=== PATIENT | male | born 1950 | race Hispanic/Latino ===

== ENCOUNTER 2016-10-06 15:27 | Inpatient (IN) | payer MEDICARE ==
--- NOTE | 2016-10-06 15:55 | ED PDOC ---
Arrival/HPI - General Time Seen by Provider: 10/06/16 15:28 Historian: Patient, EMS - History of Present Illness Narrative History of Present Illness (Text): 10/06/16 15:54 66 year old male whose past medical history includes Hep C, hypertension, alcohol abuse, and diabetes presents from home for reported altered mental status. As per EMS, they were called for altered mental status. Patient noted by EMS to be mildly hypoglyemic and given oral dextrose. Patient is a poor historian. He states he reportedly "passed out "but cannot provide further history. pt oriented x 3 but confused responses at times Denies pain. No fever or other complaints. no cp, abdominal pain, n/v/d, urinary changes, gabriel Time/Duration: 24 hours Symptom Onset: Gradual Symptom Course: Unchanged Associated Symptoms (Text): None Past Medical History - Provider Review Nursing Documentation Reviewed: Yes - Infectious Disease Hx of Infectious Diseases: None - Tetanus Immunization Tetanus Immunization: Unknown - Past Medical History Past Medical History: No Previous - Cardiac Hx Hypertension: Yes - Pulmonary Hx Respiratory Disorders: No - Neurological Hx Neurological Disorder: No - HEENT Hx HEENT Disorder: No - Renal Hx Renal Disorder: No - Endocrine/Metabolic Hx Diabetes Mellitus Type 2: Yes - Hematological/Oncological Hx Blood Disorders: No - Integumentary Hx Dermatological Disorder: No - Musculoskeletal/Rheumatological Hx Musculoskeletal Disorders: No - Gastrointestinal Hx Gastrointestinal Disorders: No - Genitourinary/Gynecological Hx Genitourinary Disorders: No - Psychiatric Hx Psychophysiologic Disorder: No Hx Substance Use: No - Past Surgical History Past Surgical History: Unable to Obtain - Surgical History Other/Comment: unobtainable - Anesthesia Hx Anesthesia Reactions: No Hx Malignant Hyperthermia: No - Suicidal Assessment Feels Threatened In Home Enviroment: No Family/Social History - Physician Review Nursing Documentation Reviewed: Yes Family/Social History: Unknown Family HX Smoking Status: Never Smoked Hx Alcohol Use: Yes Hx Substance Use: No Hx Substance Use Treatment: No Allergies/Home Meds Allergies/Adverse Reactions: Allergies No Known Allergies Allergy (Verified 10/06/16 15:59) Home Medications: Home Meds Medication Instructions Recorded Confirmed DULoxetine [Cymbalta] 60 mg PO DAILY 12/07/11 10/06/16 Allopurinol [Zyloprim] 300 mg PO DAILY 02/07/16 10/06/16 Furosemide [Lasix] 40 mg PO DAILY 02/07/16 10/06/16 Lisinopril/Hydrochlorothiazide 1 tab PO DAILY 02/07/16 10/06/16 [Lisinopril-Hctz 20-25 mg Tab] Potassium Chloride [Klor-Con 10] 1 tab PO DAILY 02/07/16 10/06/16 glyBURIDE [Micronase] 5 mg PO DAILY 02/07/16 10/06/16 Review of Systems - Review of Systems Systems not reviewed;Unavailable: Other (Poor historian) Constitutional: absent: Fevers Cardiovascular: absent: Chest Pain Gastrointestinal: absent: Abdominal Pain Physical Exam Vital Signs Reviewed: Yes Vital Signs Temp Pulse Resp BP Pulse Ox 10/06/16 18:00 91 H 34 H 133/58 L 95 10/06/16 17:57 94 H 37 H 118/53 L 93 L 10/06/16 17:55 68 79 H 10/06/16 17:29 100 H 20 125/61 90 L 10/06/16 15:45 98.9 F 110 H 24 120/65 98 10/06/16 15:41 98.9 F 110 H 20 120/65 90 L Temperature: Afebrile Blood Pressure: Normal Pulse: Tachycardic Respiratory Rate: Normal Appearance: Positive for: Other (jaundice appearing, awake alert male, speaking full sentences, no increased wob, at times confused responses, obese) Pain Distress: None Mental Status: Positive for: Alert and Oriented X 3, Confused (at time confused responses) - Systems Exam Head: Present: Atraumatic, Normocephalic Pupils: Present: PERRL Extroacular Muscles: Present: EOMI Conjunctiva: Present: Icteric, Other (scleral icterus) Mouth: Present: Moist Mucous Membranes Neck: Present: Normal Range of Motion. No: Meningeal Signs Respiratory/Chest: Present: Clear to Auscultation, Good Air Exchange. No: Respiratory Distress, Accessory Muscle Use Cardiovascular: Present: Regular Rate and Rhythm, Normal S1, S2. No: Murmurs Abdomen: Present: Normal Bowel Sounds, Other (Morbidly obese). No: Tenderness, Distention, Peritoneal Signs Genitourinary Male: Present: Normal External Genitalia Back: Present: Normal Inspection Upper Extremity: Present: NORMAL PULSES, Erythema (mild erythema, warmth to right upper arm). No: Cyanosis Lower Extremity: Present: Edema (bilateral), NORMAL PULSES, Other (Chronic appearing wounds to b/l lower extremities) Neurological: Present: GCS=15, CN II-XII Intact, Speech Normal, Motor Func Grossly Intact, Normal Sensory Function, Other (awake alert, oriented x 3, but at times confused responses) Skin: Present: Warm, Dry, Rashes ((+)chronic appearing wounds to bl lower extremities, (+)erythema/warmth to rue), Other (Jaundice) Psychiatric: Present: Alert, Oriented x 3 Medical Decision Making ED Course and Treatment: Impression: 66 year old male whose past medical history includes Hep C, hypertension, alcohol abuse, and diabetes presents from home for reported altered mental status. Differential Diagnosis include but are not limited to: sepsis, cardiac, metabolic, intracranial, tox. pt poor historian, no family bedside. Plan: -- CT Head, EKG, Chest X-ray -- Labs -- Reassess and disposition Prior Visits: Notes and results from previous visits were reviewed. Patient last seen in ED on 02/05/16 for fall and admitted for Subdural hematoma Progress Notes: 10/06/16 16:19 Code Sepsis called. antibiotics, fluids ordered. b/p 120 systolic, HR 110, afib (old). does not require 30cc/kg bolus, pt mildly hypoglyecemic on arrival, dextrose given. 10/06/16 16:54 noted new renal failure. as per ems, history of decreased urine outpt at home. suspect ATN/rhabdo, adame order placed. noted new hyperbilirubinemia - ct abd/pelvis added. pt empirically covered for cholangitis, abd soft, no ttp. ammonia wnl noted trop. asa/heparin held as ct head pending. no ekg changes. suspect type II nstemi. pt denies CP at this time. noted CPK, iv fluids already running Case discussed with Dr. Carrington, cash shortage investigator, accepts to ICU. CT/cxr imaging studies pending, will be followed by ICU team Paged Dr. Ledezma, awaiting callback 10/06/16 17:04 Dr kimball accepts. pt observed in ER awake, alert, in no respiratory distress , neuro intact, except for mild confusion. Later during CT, RN reported pt had syncopal episode when laid flat for exam, ED RN communicated directly with ICU attending, and determination to delay imaging made as per ICU team and ED RN. pt transported directly to ICU from CT scan. Case discussed with Dr. Ledezma, requesting Dr. Ross, Dr Munoz, Dr Joseph , Dr Koenig to be on consult. - Critical Care Critical Care Minutes: 45 minutes - Lab Interpretations Microbiology Results: Microbiology Results 10/06/16 16:50 Blood Blood Culture - Preliminary Gram Pos Cocci In Clusters 10/06/16 16:50 Blood Gram Stain - Final 10/06/16 15:50 Blood S.aureus & Coag-Neg Staph PNA FISH - Final 10/06/16 15:50 Blood Blood Culture - Preliminary Gram Pos Cocci In Clusters 10/06/16 15:50 Blood Gram Stain - Final Lab Results: 10/06/16 15:50 10/06/16 15:50 Lab Results 10/06/16 16:02: POC Glucose (mg/dL) 62 L 10/06/16 15:50: Alcohol, Quantitative < 10 10/06/16 15:50: Ammonia 25 10/06/16 15:50: pO2 54, VBG pH 7.17 L*, VBG pCO2 46.0, VBG HCO3 16.8 L, VBG Total CO2 18.2 L, VBG O2 Sat (Calc) 84.3 H, VBG Base Excess -11.5 L, VBG Potassium 5.7 H, Sodium 131.0 L, Chloride 98.0, Glucose 65 L, Lactate 7.2 H*, FiO2 21.0, Venous Blood Potassium 5.7 H 10/06/16 15:50: Sodium 133, Chloride 93 L, Potassium 5.4 H, Carbon Dioxide 17 L , Anion Gap 28 H, BUN 91 H, Creatinine 5.0 H, Est GFR ( Amer) 14, Est GFR (Non-Af Amer) 12, Random Glucose 70, Calcium 8.6, Magnesium 2.2, Total Bilirubin 18.4 H*, AST 198 H, ALT 74 H, Alkaline Phosphatase 98, Lactate Dehydrogenase 1591 H, Total Creatine Kinase 2484 H, CK-MB (CK-2) 76.5 H, CK-MB ( CK-2) % 3.1 H, Troponin I 1.80 H* D, Total Protein 7.5, Albumin 3.0, Globulin 4.5, Albumin/Globulin Ratio 0.7 L 10/06/16 15:50: PT 14.3 H, INR 1.32 H, APTT 33.8 H 10/06/16 15:50: WBC 30.8 H* D, RBC 3.97, Hgb 12.8 L, Hct 37.7 L, MCV 95.0, MCH 32.2, MCHC 34.0, RDW 16.5 H, Plt Count 50 L, MPV 10.2, Neutrophils % (Manual) 89 H, Band Neutrophils % 9 H, Lymphocytes % (Manual) 1 L, Monocytes % (Manual) 1 , Nucleated RBC % 3, Platelet Evaluation Low - RAD Interpretation Radiology Orders: 10/06/16 15:51 HEAD W/O CONTRAST [CT] Stat CHEST PORTABLE [RAD] Stat 10/06/16 16:50 ABD & PELVIS W/O PO OR IV CONT [CT] Stat - EKG Interpretation EKG Interpretation (Text): EKG shows atrial fibrillation at 111 BPM, otherwise normal. Interpreted by me. Interpreted by ED Physician: Yes Type: 12 lead EKG - Medication Orders Current Medication Orders: Discontinued Medications Dextrose (Dextrose 50% Inj) 50 ml IVP STAT STA Stop: 10/06/16 16:06 Last Admin: 10/06/16 16:08 Dose: 50 ml Heparin Sodium (Porcine) (Heparin) 5,000 units SC Q8 ANGIE PRN Reason: Protocol Last Admin: 10/06/16 21:53 Dose: 5,000 units Vancomycin HCl (Vancomycin 1gm) 1 gm in 250 mls @ 167 mls/hr IVPB STAT STA PRN Reason: Protocol Stop: 10/06/16 17:43 Piperacillin Sod/Tazobactam Sod (Zosyn 3.375 In Ns 100ml) 100 mls @ 200 mls/hr IVPB STAT STA PRN Reason: Protocol Stop: 10/06/16 16:43 Last Admin: 10/06/16 16:27 Dose: 200 mls/hr Sodium Chloride (Sodium Chloride 0.9%) 1,000 mls @ 999 mls/hr IV .Q1H1M STA Stop: 10/06/16 17:15 Last Admin: 10/06/16 16:27 Dose: 999 mls/hr Dextrose/Sodium Chloride (Dextrose 5%/0.45% Ns 1000 Ml) 1,000 mls @ 60 mls/hr IV .[id number] ANGIE Piperacillin Sod/Tazobactam Sod (Zosyn 3.375 In Ns 100ml) 100 mls @ 200 mls/hr IVPB Q6 ANGIE PRN Reason: Protocol Stop: 10/07/16 06:29 Last Admin: 10/07/16 00:00 Dose: 200 mls/hr Dextrose/Sodium Chloride (Dextrose 5%/0.45% Ns 1000 Ml) 1,000 mls @ 125 mls/hr IV .Q8H ANGIE Last Admin: 10/06/16 20:09 Dose: 125 mls/hr Sodium Chloride (Sodium Chloride 0.9%) 1,000 mls @ 999 mls/hr IV .Q1H1M STA Stop: 10/06/16 20:59 Last Admin: 10/06/16 20:11 Dose: 999 mls/hr Heparin Sodium/Sodium Chloride (Heparin 28562 Units/250ml 1/2 Normal Saline) 25 ,000 units in 250 mls @ 13.2 mls/hr IV .[id number] ANGIE; 12 UNITS/KG/HR PRN Reason: Protocol Last Admin: 10/07/16 01:17 Dose: 12 units/kg/hr, 13.2 mls/hr Insulin Human Lispro (Humalog Med) 0 units SC ACHS ANGIE PRN Reason: Protocol Last Admin: 10/06/16 21:53 Dose: Not Given Non-Admin Reason: Blood Sugar Parameter Pantoprazole Sodium (Protonix Inj) 40 mg IVP DAILY ANGIE Pneumococcal Polyvalent Vaccine (Pneumovax 23 Vaccine) 0.5 ml IM .ONCE ONE Stop: 10/06/16 19:01 - Scribe Statement The provider has reviewed the documentation as recorded by the Yaya Mathis Provider Scribe Attestation: All medical record entries made by the Malkaibpao were at my direction and personally dictated by me. I have reviewed the chart and agree that the record accurately reflects my personal performance of the history, physical exam, medical decision making, and the department course for this patient. I have also personally directed, reviewed, and agree with the discharge instructions and disposition. Disposition/Present on Arrival - Present on Arrival Any Indicators Present on Arrival: No History of DVT/PE: No History of Uncontrolled Diabetes: Yes Urinary Catheter: No History Surgical Site Infection Following: None - Disposition Have Diagnosis and Disposition been Completed?: Yes Diagnosis: Sepsis, Hypoglycemia, Altered mental status, NSTEMI (non-ST elevated myocardial infarction), Thrombocytopenia, Renal failure, Hyperbilirubinemia, Lactic acidosis, Rhabdomyolysis Disposition: HOSPITALIZED Disposition Time: 05:00 Patient Plan: ICU Condition: CRITICAL
[2016-10-06] MEDS ORDERED: Dextrose 50% SYRINGE Inj (50 ml) IVP STA (16:05)
[2016-10-06 16:08] LABS: HEMATOCRIT 37.7 % (42.0-52.0); MEAN CORPUSCULAR HEMOGLOBIN 32.2 pg (25.0-35.0); MEAN PLATELET VOLUME 10.2 fl (7.0-11.0); PLATELET COUNT 50 10^3/uL (120.0-450.0); RED CELL DISTRIBUTION WIDTH 16.5 % (11.5-14.5)
[2016-10-06 16:13] LABS: WHITE BLOOD COUNT 30.8 10^3/ul (4.5-11.0)
[2016-10-06] MEDS ORDERED: Piperacillin/Tazobact 3.375 gm 100 ML IVPB STA (16:14)
[2016-10-06] MEDS ORDERED: Vancomycin 1gm in NS 250ml 1 GM/250 ML BAG IVPB STA (16:14)
[2016-10-06 16:15] LABS: ADD MANUAL DIFF? YES; VENOUS BLOOD GAS BASE EXCESS -11.5 mmol/L (0.0-2.0); VENOUS BLOOD PH 7.17 (7.32-7.43)
[2016-10-06] MEDS ORDERED: Sodium Chloride 0.9% 1,000 ML IV STA ×2 (16:15→19:59)
[2016-10-06 16:18] LABS: INR 1.32 (0.93-1.08); PARTIAL THROMBOPLASTIN TIME 33.8 Seconds (23.7-30.8)
[2016-10-06 16:22] LABS: ALB/GLOB RATIO 0.7 (1.1-1.8); CALCIUM 8.6 mg/dL (8.4-10.5); MAGNESIUM 2.2 mg/dL (1.7-2.2); POTASSIUM 5.4 mmol/L (3.6-5.0); TOTAL PROTEIN 7.5 g/dL (5.8-8.3)
[2016-10-06 16:32] LABS: BAND 9 % (0-2); NEUTROPHIL 89 % (50.0-70.0); NUCLEATED RED BLOOD CELL 3 %; PLATELET ESTIMATE LOW (NORMAL)
--- NOTE | 2016-10-06 16:32 | PCM.SEPTIC ---
Sepsis Progress Note - Reassessment Type Date of Evaluation: 10/06/16 Time of Evaluation: 16:29 Reassessment Type: Non-invasive reassessment - Non Invasive Reassessment Were the most recent vital sign reviewed: Yes Vital Sign (Latest): Temp Pulse Resp BP Pulse Ox 98.9 F 110 H 24 120/65 98 10/06/16 15:45 10/06/16 15:45 10/06/16 15:45 10/06/16 15:45 10/06/16 15:45 Cardiovascular: Yes: Tachycardia Capillary Refill: Normal (Less than 2 sec) Pulses: Normal Radial, Normal Dorsalis Pedis, Normal Posterior Tibialis Skin: Jaundice
[2016-10-06 16:47] LABS: TROPONIN I 1.8 ng/mL
[2016-10-06 16:48] LABS: BILIRUBIN,TOTAL 18.4 mg/dL (0.2-1.3)
[2016-10-06 18:59] VITALS: BMI 34.7
[2016-10-06 18:59] LABS: ARTERIAL BLOOD GAS HCO3 16.4 mmol/L (21-28); ARTERIAL BLOOD GAS PH 7.22 (7.35-7.45)
[2016-10-06] MEDS ORDERED: Pneumococcal 23-Valent Vaccine IM ONE (19:00)
[2016-10-06 19:09] LABS: PH,URINE 5.5 (4.7-8.0); URINE APPEARANCE SL CLOUDY (CLEAR); URINE BILIRUBIN MODERATE (NEGATIVE); URINE BLOOD SMALL (NEGATIVE); URINE COLOR DARK YELLOW (YELLOW); URINE GLUCOSE (UA) 100 mg/dL (NEGATIVE); URINE KETONE NEGATIVE (NEGATIVE); URINE LEUKOCYTE ESTERASE TRACE Leu/uL (NEGATIVE); URINE PROTEIN >=300 mg/dL (<30 mg/dL)
[2016-10-06 19:15] LABS: URINE BACTERIA FEW (NEG)
[2016-10-06] MEDS ORDERED: Sodium Chloride 0.9% 1,000 ML IV SCH (19:15)
[2016-10-06] MEDS ORDERED: Dextrose 5%/0.45% NS 1,000 ML IV SCH ×2 (19:15→19:58)
[2016-10-06 20:05] LABS: VENOUS BLOOD GAS BASE EXCESS -9.8 mmol/L (0.0-2.0); VENOUS BLOOD PH 7.18 (7.32-7.43)
--- NOTE | 2016-10-06 20:17 | CON ---
DATE: 10/06/2016 REQUESTING PHYSICIAN: Dr. Ledezma. CHIEF COMPLAINT: The patient presented with a history of a syncopal episode and altered mental statu s. HISTORY OF PRESENT ILLNESS: The patient is a 66-year-old obese gentleman who was found at home unres ponsive and developed after that altered mental status and was brought to the Emergency Room and note d to be hypoglycemic. The patient has a history of hepatitis C, diabetes, atrial fibrillation, ETOH abuse, hypertension and was found to have altered mental status at home and for which he stated he pa ssed out. The labs revealed increased white count of 30. He has increased lactic acid, metabolic ac idosis, with noted acute renal failure, hepatitis with increased bilirubin and rhabdomyolysis. The p atient has increased troponins, so a possible myocardial infarction or acute coronary syndrome and we must rule out sepsis with the increased white count. At this time, he is admitted to the intensive care unit. He does respond to the spoken word. Hemodynamically, he is stable. No cough, no congest ion. No fever or chills. No nausea or vomiting. No chest pain or abdominal pain and no diarrhea. PAST MEDICAL HISTORY: As above. ALLERGIES: He has no known allergies. CURRENT MEDICATIONS: Can be evaluated as per the nurses' intake form. SOCIAL HISTORY: The patient uses alcohol, no substance abuse and no history of smoking. REVIEW OF SYSTEMS: CONSTITUTIONAL: All negative. HEENT: All negative. RESPIRATORY: All negative. CARDIOVASCULAR: All negative. GASTROINTESTINAL: All negative. GENITOURINARY: All negative. MUSCULOSKELETAL: All negative. NEUROPSYCHIATRIC: The patient had the altered mental status, possible syncopal episode. ENDOCRINE: All negative. HEMATOLOGIC: All negative. IMMUNOLOGIC: All negative. INTEGRITY: Does have some ulcerations in his lower extremities. PHYSICAL EXAMINATION: VITAL SIGNS: His temperature is 98.9, his pulse is 85, respirations are 16 and his BP is 134/80. SKIN: Warm and dry. HEAD: Atraumatic, normocephalic. EYES: Reactive to light. EARS, NOSE AND THROAT: Seem to be within normal limits. NECK: Supple, no JVD, no thyroid enlargement, no lymph nodes. HEART: Has an irregular rate and rhythm. Normal S1, S2. LUNGS: Reveal good breath sounds bilaterally. ABDOMEN: Obese, decreased bowel sounds, no tenderness to palpation. GENITALIA AND RECTAL: Deferred. MUSCULOSKELETAL: No joint deformities. EXTREMITIES: Reveal peripheral vascular disease in the lower extremities with some small ulcerations around the leg and the toes. NEUROLOGIC: The patient had an episode of possible syncopal episode, altered mental status, but at t his point is awake and alert, moving all extremities. LABORATORY DATA: Reveal a white count of 30.8, hemoglobin of 12.8, hematocrit 37.7 with platelets of 50,000. His PT is 14.3, INR is 1.32 and PTT is 33.8. Arterial blood gas reveals a pH of 7.22, pCO2 of 40, pO2 of 78. Sodium is 133, potassium 5.4, chloride 93, CO2 of 17 with a BUN of 91, creatinine of 5.0, and a glucose of 62. The patient's bilirubin is 18.4, AST is 194, ALT is 74. The patient's LDH is 1591 and his creatinine kinase is 2484. Troponin is 1.8. IMAGING: The patient's chest x-ray reveals mild congestion, but difficult to read secondary to poor inspiratory effort and body habitus. IMPRESSION: This patient has sepsis with increased white count and hypoglycemia. He also has metabo lic acidosis. The patient has rhabdomyolysis as well as hepatitis with increased bilirubin and acute renal failure. The patient presented with altered mental status, possible syncopal episode and has thrombocytopenia. He has a history of hypertension, ETOH abuse, hepatitis C, diabetes, atrial fibril lation and obesity. PLAN: We will continue with IV fluids with D5 and a half at 60 mL an hour. The patient has consults with GI, renal as well as cardiology. We will follow his labs closely and correct as needed. The p atient is getting Protonix and has been started on antibiotics of Zosyn and vancomycin. We will see if we can get a CT of his head once the patient is stable and we will follow up with the chest x-ray results. We will continue to treat aggressively along with the other consultants and the primary car e doctor. Tim Toribio MD cc: [id number] TT: 10/06/2016 20:16:06 Confirmation # [id number] Dictation # [id number] dn
[2016-10-06] MEDS ORDERED: Insulin Lispro (humaLOG) MEDIUM Coverage SC SCH (22:00)
[2016-10-06 22:20] LABS: TROPONIN I 3.57 ng/mL
[2016-10-07] MEDS ORDERED: Piperacillin/Tazobact 3.375 gm 100 ML IVPB SCH
[2016-10-07] MEDS ORDERED: Heparin25000 units/250ml 1/2NS 25,000 UNITS/250 ML BAG IV SCH (00:30)
--- NOTE | 2016-10-07 01:21 | CT ---
EXAM: CT Head Without Intravenous Contrast CLINICAL HISTORY: 66 years old, male; Signs and symptoms; Altered mental status/memory loss; Confusion or disorientation; Additional info: AMS TECHNIQUE: Axial computed tomography images of the head/brain without intravenous contrast. This CT exam was performed using one or more of the following dose reduction techniques: automated exposure control, adjustment of the mA and/or kV according to patient size, and/or use of iterative reconstruction technique. COMPARISON: CT - HEAD W/O CONTRAST 02/06/2016 9:11:51 AM FINDINGS: Limitations: Motion artifact - moderate. Brain: Minimal atrophy. Apparent mild subarachnoid hemorrhage. No definite mass. No gross edema. Ventricles: No hydrocephalus. Bones/joints: No definite fracture. Soft tissues: Unremarkable. Sinuses: No acute sinusitis. Mastoid air cells: No mastoid effusion. Orbits: Unremarkable as visualized. IMPRESSION: 1. Limited examination. 2. Apparent subarachnoid hemorrhage. 3. Incidental/non-acute findings are described above.
--- NOTE | 2016-10-07 01:38 | CT ---
EXAM: CT Abdomen and Pelvis Without Intravenous Contrast CLINICAL HISTORY: 66 years old, male; Signs and symptoms; Other: Septic; Additional info: Sepsis TECHNIQUE: Axial computed tomography images of the abdomen and pelvis without intravenous contrast. This CT exam was performed using one or more of the following dose reduction techniques: automated exposure control, adjustment of the mA and/or kV according to patient size, and/or use of iterative reconstruction technique. Coronal and sagittal reformatted images were created and reviewed. COMPARISON: MR - ABDOMEN W/WO CONTRAST 03/09/2016 8:28:13 AM FINDINGS: Limitations: Motion artifact - mild to moderate. Lack of intravenous contrast. Lower thorax: See chest CT report for additional details. ABDOMEN: Liver: Unremarkable. Gallbladder and bile ducts: Gallstones. No ductal dilation. Pancreas: Unremarkable. No ductal dilation. Spleen: Lobulated spleen. Adrenals: No mass. Kidneys and ureters: [id number] stranding about kidneys, nonspecific. No renal calculi. No hydronephrosis. Stomach and bowel: Few scattered diverticula within colon. No associated inflammatory stranding. Segmental areas of underdistention of colon. No definite mural thickening. No obstruction. Appendix: No findings to suggest acute appendicitis. PELVIS: Bladder: Bartlett catheter. Tiny focus of air within lumen. No stones. Reproductive: Unremarkable as visualized. ABDOMEN and PELVIS: Intraperitoneal space: No significant fluid collection. No free air. Bones/joints: Degenerative changes of hips and spine. No acute fracture. Soft tissues: Mild stranding within subcutaneous tissues. Vasculature: Mild atherosclerotic disease. No abdominal aortic aneurysm. Lymph nodes: No pathologically enlarged lymph nodes. IMPRESSION: 1. Cholelithiasis. 2. Perinephric stranding, nonspecific. Clinical correlation is needed. 3. Air within bladder lumen. DDX: Recent instrumentation or cystitis. 4. Incidental/non-acute findings are described above.
--- NOTE | 2016-10-07 01:44 | CT ---
EXAM: CT Chest Without Intravenous Contrast CLINICAL HISTORY: 66 years old, male; Signs and symptoms; Other: Septic; Additional info: Severe sepsis; Evaluate for possible infiltrate TECHNIQUE: Axial computed tomography images of the chest without intravenous contrast. This CT exam was performed using one or more of the following dose reduction techniques: automated exposure control, adjustment of the mA and/or kV according to patient size, and/or use of iterative reconstruction technique. Coronal and sagittal reformatted images were created and reviewed. COMPARISON: CR - CHEST PORTABLE 10/06/2016 5:05:15 PM FINDINGS: Limitations: Motion artifact - mild to moderate. Lack of intravenous contrast. Lungs: Mild peripheral atelectasis/scarring. Mild mosaic pattern of lung parenchyma. Mild interlobular septal thickening. Minimal patchy peripheral airspace disease within lower lobes, RIGHT greater than LEFT. Pleural space: Trace RIGHT pleural effusion/thickening. No pneumothorax. Heart: Mild cardiomegaly. No significant pericardial effusion. Coronary artery calcifications. Bones/joints: Degenerative changes of shoulders and spine. No acute fracture. Soft tissues: Minimal stranding within subcutaneous tissues. Vasculature: Mild atherosclerotic disease of aorta. No aortic aneurysm. Lymph nodes: No pathologically enlarged lymph nodes. Upper abdomen: See abdomen CT report for additional details. IMPRESSION: 1. Possible early interstitial edema. Clinical correlation is needed. 2. Bibasilar atelectasis. Superimposed early pneumonia not entirely excluded. 3. Incidental/non-acute findings are described above.
[2016-10-07 02:22] VITALS: TEMP 97.6
[2016-10-07 02:24] VITALS: BP 111/56; PULSE 105; RESP 24; O2SAT 95
--- NOTE | 2016-10-07 02:50 | CP.PCM.PN ---
Subjective - Date & Time of Evaluation Date of Evaluation: 10/07/16 Time of Evaluation: 01:45 - Subjective Subjective: Patient's Head CT finally completed and reviewed personally and also discussed the case with [facility] radiologist health occupations teacher. Patient appears to have a sub arachnoid hemorrhage (series 2 images [id number]). Immediately called our Neurosurgical team health occupations teacher and spoke with Dr. Cuello who recommends transferring the patient to another facility. I called [facility] and discussed the case with the Neurosurgery PA (Kasandra) who agrees to accept the patient for transfer under the service of Dr. Cecil Faustin. Discussed the case with the patient at bedside who is AAOx3 however does appear confused and slightly delerious at times. I then callled the patient's next of kin (brother -Georgi) and explained at great length the necessity for transferring the patient to another facility in order to manage the sub-arachnoid hemorrhage which our Neurosurgeons stated could not be managed here and he agreed. Patient currently does not complain of any pain, headache, shortness of breath, chest pain, abdominal pain or nausea. Objective - Vital Signs/Intake and Output Vital Signs (last 24 hours): Temp Pulse Resp BP Pulse Ox 97.6 F 105 H 24 111/56 L 95 10/07/16 00:00 10/07/16 02:00 10/07/16 02:00 10/07/16 02:00 10/07/16 02:00 Intake and Output: 10/06/16 10/07/16 18:59 06:59 Intake Total 250 Output Total 500 Balance -250 - Medications Medications: Current Medications Piperacillin Sod/Tazobactam Sod (Zosyn 3.375 In Ns 100ml) 100 mls @ 200 mls/hr IVPB Q6 ANGIE PRN Reason: Protocol Stop: 10/07/16 06:29 Last Admin: 10/07/16 00:00 Dose: 200 mls/hr Dextrose/Sodium Chloride (Dextrose 5%/0.45% Ns 1000 Ml) 1,000 mls @ 125 mls/hr IV .Q8H ANGIE Last Admin: 10/06/16 20:09 Dose: 125 mls/hr Insulin Human Lispro (Humalog Med) 0 units SC ACHS ANGIE PRN Reason: Protocol Last Admin: 10/06/16 21:53 Dose: Not Given Pantoprazole Sodium (Protonix Inj) 40 mg IVP DAILY ANGIE - Labs Labs: PT 14.3 Seconds (9.9-11.8) H 10/06/16 15:50 INR 1.32 (0.93-1.08) H 10/06/16 15:50 APTT 33.8 Seconds (23.7-30.8) H 10/06/16 15:50 - Constitutional Appears: Confused - Head Exam Head Exam: ATRAUMATIC, NORMOCEPHALIC - Eye Exam Eye Exam: EOMI, PERRL - ENT Exam ENT Exam: Mucous Membranes Dry - Neck Exam Neck Exam: Full ROM. absent: Tenderness - Respiratory Exam Respiratory Exam: Decreased Breath Sounds (decreased bibasilar breath sounds), Clear to Ausculation Bilateral, Respiratory Distress (mildly tachypnic; rr 20-26 ). absent: Rales, Rhonchi, Wheezes - Cardiovascular Exam Cardiovascular Exam: Tachycardia, +S1, +S2 - GI/Abdominal Exam GI & Abdominal Exam: Soft. absent: Distended, Tenderness, Rebound - Rectal Exam Rectal Exam: Deferred - Extremities Exam Additional comments: bilateral lower extremity venous stasis dermatitis with chronic appearing wounds weeping mild serous fluid - Neurological Exam Neurological Exam: Alert, Altered, Awake - Psychiatric Exam Psychiatric exam: Normal Affect, Normal Mood - Skin Skin Exam: Dry, Normal Color, Warm Assessment and Plan - Assessment and Plan (Free Text) Assessment: 66 y/o male with an extensive PMHx Afib, DM2, Etoh Abuse, history of hep C, ? SDH in 02/2016 who was admitted to the hospital hours ago (10/06/16) with altered mental status, weakness and lethargy after being found on the floor by his brother. Patient was reportedly immobile for up to 2 days prior to being found and was thought to have acute kidney injury with rhabdomyolysis. A CT of the head and abdomen were ordered in the ED but never completed due to the patient reportedly having a syncopal event while on the CT Scan table. I sent the patient down for a CT of the head again on my shift, which revealed the subarachnoid hemorrhage. Patient is currently awaiting transport via Ambulance to transport him to [facility] under the service of Dr. Walls for further treatment and management. Patient's brother has been notified; the patient has been informed and agrees; awaiting Ambulance personnel at this time. Maintain normothermia; aim to keep his sbp normotensive (he has not had any episodes of severe or refractory hypertension while here in the ICU) Oxygen support via nasal cannula at this time; if required patient may be transitioned to noninvasive ventilation avoid blood thinners; patient had received a dose of subQ heparin and was planned for a heparin drip due to elevated troponins however the drip was never started as the CT reading was available fairly quickly after it was performed Case discussed with Nursing staff, the patient, his brother and Neurosurgical team at [facility]. Plan: update 7:00am Overnight a little after 2:30am the patient was transferred to [facility]. Patient's [place] and was updated on his transfer, states she will call [facility] to find out more information regarding her fathers care.
--- NOTE | 2016-10-07 07:08 | RAD ---
HISTORY: weakness COMPARISON: No prior. FINDINGS: LUNGS: No active pulmonary disease. PLEURA: No significant pleural effusion identified, no pneumothorax apparent. CARDIOVASCULAR: Normal. OSSEOUS STRUCTURES: No significant abnormalities. VISUALIZED UPPER ABDOMEN: Normal. OTHER FINDINGS: None. IMPRESSION: No active disease.
--- NOTE | 2016-10-07 10:00 | CP.PCM.PCO ---
Physician Communication Note - Physician Communication Note Physician Communication Note: [facility] called, blood cx x2 (+) for S. aureus, [facility] notified/aware
--- NOTE | 2016-10-07 14:59 | CARD ---
APPROVED REPORT EKG Measurement Heart [id number] <Conclusion> Atrial fibrillation with rapid ventricular response Rightward axis Cannot rule out Anterior infarct, age undetermined Abnormal ECG
--- NOTE | 2016-10-19 11:19 | HP ---
HISTORY OF PRESENT ILLNESS: This is a 66-year-old obese man with hypertension, hepatitis C, history of alcohol use and diabetes who presents to the Emergency Room with altered mental status after a rep orted fall. He was found to be hypoglycemic, given oral dextrose and says that he passed out, but co uld not give a history. In the Emergency Room, he was reportedly oriented, but confused. Workup was done in the ER including CT scan of the head. He was evaluated by the ICU team and admitted to the intensive care unit, late that Saturday evening. During the night CT scan of the head reported a palafox barachnoid hemorrhage and so arrangements were made for him to be transferred to a tertiary referral unit with neurosurgical capabilities. The patient left the hospital in the devulcanizer loader hours of before being seen by me. FINAL DISCHARGE DIAGNOSES: 1. Subarachnoid hemorrhage. 2. Fall at home. 3. Hypertension. 4. Diabetes. 5. Hepatitis C. 6. History of alcohol use. 7. Morbid obesity and again mentioned, hypertension, diabetes, hepatitis C, alcohol use. Georgi Ledezma MD cc: [phone] TT: 10/19/2016 11:18:48 juani
--- NOTE | 2016-10-19 13:08 | DS ---
This is a 66-year-old man with a history of hepatitis C, hypertension, alcohol use, diabetes and morb id obesity, who came to the Emergency Room because of altered mental status. The patient reportedly had a fall at home. He was found to be mildly hypoglycemic and given some oral dextrose, but could n ot provide an adequate history. Because of the confusional state, workup in the ER was done includin g CT scan of the head as well as abdomen. The patient was evaluated by the astrophysics professor, admitted to ICU late Saturday evening. During the night, the CT scan report came back suspicious of a subarachno id hemorrhage and so arrangements were made for him to transfer to a tertiary referral center with ne urosurgical capabilities. He left the hospital by 5 a.m. the following morning, approximately 12 edward rs after presentation to the Emergency Room. I did not see him during this hospital stay. FINAL DISCHARGE DIAGNOSES: 1. Subarachnoid hemorrhage. 2. Hypertension. 3. Diabetes. 4. Morbid obesity. 5. Hepatitis C. 6. History of alcohol use. Georgi Ledezma MD cc: [id number] TT: 10/19/2016 13:07:15 en
== END 2016-10-07 04:32 | disposition short-term general hospital (02) | DRG 637 ==
LOC: ED 15:27 → ERH 16:55 → CCU 18:02
PROVIDERS: ADMIT Internal Medicine; ATTEND Internal Medicine
DX: E11.649 Type 2 diabetes mellitus with hypoglycemia without coma (principal); I60.9 Nontraumatic subarachnoid hemorrhage, unspecified; M62.82 Rhabdomyolysis; N17.9 Acute kidney failure, unspecified; E87.2 Acidosis; D69.6 Thrombocytopenia, unspecified; I48.91 Unspecified atrial fibrillation; I10 Essential (primary) hypertension; F10.10 Alcohol abuse, uncomplicated; B19.20 Unspecified viral hepatitis C without hepatic coma; Y90.0 Blood alcohol level of less than 20 mg/100 ml; E66.9 Obesity, unspecified; Z68.34 Body mass index [BMI] 34.0-34.9, adult; Z79.84 Long term (current) use of oral hypoglycemic drugs